=== PATIENT | male | born 1975 | race Caucasian/White ===

== ENCOUNTER 2020-12-30 18:20 | Emergency (ER) | payer OTHER ==
[~2020-12-30] VITALS: Ht 172.7 cm; Wt 84.2 kg
[2020-12-30] MEDS ORDERED: PLEASE ENTER ALLERGIES MC SCH (19:00)
[2020-12-30] MEDS ORDERED: SODIUM CHLORIDE FLUSH 10ML SYR IVF ONE (19:00)
[2020-12-30 19:15] LABS: BASOPHILS % (AUTO) 1 % (0-1); EOSINOPHILS % (AUTO) 8 % (1-7); LYMPHOCYTES % (AUTO) 32 % (22-44); MEAN CORPUSCULAR HEMOGLOBIN 30.2 pg (27.5-34.5); MEAN CORPUSCULAR HGB CONC 34.8 g/dL (33.2-36.2); MEAN PLATELET VOLUME 8.8 fL (7.4-10.4); MONOCYTES % (AUTO) 9 % (2-9); NEUTROPHILS % (AUTO) 51 % (42-75); PLATELET COUNT 344 x10^3/uL (130-400); RED BLOOD COUNT 5.12 x10^6/uL (4.38-5.82); RED CELL DISTRIBUTION WIDTH 12.7 % (9.4-14.8)
[2020-12-30 19:16] LABS: MD NO
--- NOTE | 2020-12-30 19:18 | NUR ---
PT IN BED. STARTED PIV
[2020-12-30 19:25] LABS: ALBUMIN 3.8 g/dL (3.4-5.0); ANION GAP 9 mmol/L (5-15); CALCIUM 8.8 mg/dL (8.5-10.1); CHLORIDE 106 mmol/L (98-107); CREATININE 0.95 mg/dL (0.7-1.3)
[2020-12-30 19:35] LABS: MICROSCOPIC NOT IND
[2020-12-30] MEDS ORDERED: OMNIPAQUE 350 MG/ML, 100ML BOTTLE ONE (19:56)
--- NOTE | 2020-12-30 20:19 | NUR ---
PT IN BED, BACK FROM CT.
[2020-12-30] MEDS ORDERED: KETOROLAC 30 MG/1 ML IVPush ONE (21:14)
[2020-12-30 21:25] VITALS: BP 122/76
[2020-12-30] MEDS ORDERED: KETOROLAC 30 MG/1 ML ONE (21:27)
--- NOTE | 2020-12-30 21:40 | NUR ---
pt dc home. walked out self with steady gait. if s&s worsen return to the er
== END 2020-12-30 21:43 | disposition home or self-care (01) ==
LOC: ED 21:05
DX: K57.32 Diverticulitis of large intestine without perforation or abscess without bleeding (principal); R30.0 Dysuria; R10.32 Left lower quadrant pain; I10 Essential (primary) hypertension; R31.9 Hematuria, unspecified
CPT/HCPCS: 36415; 74177; 80048; 81003; 82040; 85025; 96374; 99285; J1885; Q9967

== ENCOUNTER → 2021-06-23 | Outpatient (CLI) | payer OTHER ==
[~2021-06-23] MED LIST: SINCALIDE (KINEVAC) 5 MCG ONE
== END | disposition home or self-care (01) ==
LOC: RAD 10:43
PROVIDERS: ATTEND Internal Medicine Gastroenterology
DX: R10.13 Epigastric pain (principal)
CPT/HCPCS: 78227; A9537; J2805